=== PATIENT | female | born 1995 | race Caucasian/White ===

== ENCOUNTER 2020-11-23 17:18 | Emergency (ER) | payer MEDICAID ==
[~2020-11-23] VITALS: Ht 170.2 cm; Wt 84.1 kg
[2020-11-23 17:23] VITALS: BP 121/87
== END 2020-11-23 19:04 | disposition left against medical advice (07) ==
LOC: ER 17:20
DX: N93.9 Abnormal uterine and vaginal bleeding, unspecified (principal); Z53.21 Procedure and treatment not carried out due to patient leaving prior to being seen by health care provider